=== PATIENT | male | born 1995 | race Caucasian/White ===

== ENCOUNTER 2018-02-25 12:41 | Emergency (ER) | payer OTHER, SELFPAY ==
[2018-02-25 12:46] VITALS: BP 154/90; PULSE 82; RESP 16; TEMP 36.6; O2SAT 98
--- NOTE | 2018-02-25 13:07 | DI.RAD_ITS ---
SYMPTOMS/DIAGNOSIS: TRAUMA, PAIN WORSE OVER AC, SLIPPED OFF LADDER AND HEARD A POP WHILE GRABBING AT THE RUNGS DURING FALL RIGHT SHOULDER: Five views were obtained. No bony or soft tissue abnormality seen.
--- NOTE | 2018-02-25 13:09 | W.ED.GENAD ---
Discharge Plan Disposition Patient Disposition: HOME Condition: Fair Discharge Details Chief Complaint: Orthopedic Clinical Impression: Acute pain of right shoulder Primary Care Provider: Jillian Gama V ED Provider: Violet Cannon Home Meds and New Rx's Prescriptions: New ibuprofen 600 mg tablet 600 mg PO QID PRN (Reason: pain) Qty: 20 RF: 0 No Action No Known Home Meds RF: 0 Discharge Instructions Additional Instructions: Encourage rest, ice, elevation. Tylenol and/or ibuprofen as needed for discomfort. He may use 600 mg of ibuprofen every 6 hours as needed for discomfort. He may augment this with thousand milligrams of Tylenol 4 times daily as needed. Please contact orthopedics to schedule follow-up. If you develop new or worsening symptoms he care urgently once again. Please continue with sling until evaluated by orthopedics. Referrals: Garry Barrios MD [ [facility] STAFF PHYSICIAN] - ([phone]) Discharge Data Discharge Date/Time-TO BE ENTERED AT DEPARTURE: 02/25/18 14:08 Medical Decision Making Patient is a 22-year-old [id number] male presenting today with chief complaint of right shoulder pain. He reports that approximately 4 hours prior to arrival he was working on a 23 foot ladder, sustaining a house at work, slipped off the wet ladder and then fell down. Did not actually fall off a ladder, rather, the patient slid down the right ladder and was trying to catch himself on the rungs with his right hand. States that while doing so he felt a pop in the right shoulder. Since that time has had pain in the anterior lateral aspect of the right shoulder. Denies any history of injury or surgery to the shoulder. Denies any altered sensation. Denies other injury that incident. Did not strike his head. No loss conscious. No nausea or vomiting, visual changes. Patient is also endorsing some pain along the superior aspect of the shoulder rating up towards the neck denies any midline neck tenderness. On exam, patient has full range of motion of the neck. No midline tenderness. With full range to the right with rotation, patient is endorsing some pain but points to the area of the trapezius rating down towards her right shoulder is area of maximal discomfort. 5 of 5 economic manager strength compared to contralateral side. Full range of motion of the elbow, wrist, hand. No Tim deformity. Pain seems to be maximal over the right AC joint. Plan to obtain radiographic images and we will augment his ibuprofen with Tylenol. Discussed splinted the patient was in agreement XR reviewed by myself as well as radiologist with no acute bony abnormality noted. Discussed findings with the patient. He does have palpable clicking with movement of the shoulder. Given this physical exam finding as well as the mechanism of injury, I am concerned for possible SLAP lesion. We also discussed that this may be another ligamentous injury versus muscle strain. He will be placed in a sling. Advised that he keep this on until follow-up with orthopedics. Encouraged rest, ice, elevation. Tylenol and/or ibuprofen as needed for discomfort. We discussed new/worsening symptoms once he care urgently once again. All his questions and concerns were addressed and he is in agreement with this plan. Patient will contact orthopedics today to schedule follow-up appointment HPI General Mode of arrival: ambulatory. Date/Time Provider Initiated Documentation: 02/25/18 12:59. Limitations to Documentation: no limitations. Information obtained by: patient. History of Present Illness 22 year old M presents to the emergency department with the chief complaint of Right shoulder pain, described as moderate, with intensity rated at 7. Quality is described as stabbing and aching, and is localized to the right and upper extremity. Patient reports no radiation. Patient started experiencing this hour(s) (4) and it has been constant. Immobilization improves symptom(s), Movement worsens symptoms . Patient notes no other symptoms.; denies chest pain, cough, fever/chills, headaches, nausea/vomiting, rash and shortness of breath. Patient did receive the following treatments prior to arrival, NSAID Related Data Home Medications Medication Instructions Recorded Confirmed Unknown [No Known Home Meds] 02/25/18 02/25/18 ibuprofen 600 mg PO QID PRN #20 tab 02/25/18 Previous Rx's Medication Instructions Recorded ibuprofen 600 mg PO QID PRN #20 tab 02/25/18 Allergies Allergy/AdvReac Type Severity Reaction Status Date / Time No Known Allergies Allergy Unverified 02/25/18 12:49 General Stated Complaint: Orthopedic PHAN: 4 Review of Systems Constitutional Denies chills, Denies fatigue, Denies fever(s), Denies headache(s) and Denies malaise Eyes Denies change in vision ENT Denies headache(s) Cardiovascular Denies chest pain, Denies dyspnea and Denies dyspnea on exertion Respiratory Denies cough, Denies dyspnea and Denies dyspnea on exertion Gastrointestinal Denies nausea and Denies vomiting Genitourinary Denies urinary incontinence Musculoskeletal Reports as per HPI, Denies numbness and Denies tingling Integumentary/Breasts Denies erythema, Denies rash and Denies wounds Neurologic Reports as per HPI, Denies headache(s), Denies numbness, Denies radicular pain, Denies tingling and Denies paresthesias Endocrine Denies fatigue [facility] Social History Smoking/Tobacco Use Status: Current every day Exam Const General: cooperative, healthy appearing, comfortable, no acute distress, well developed and well groomed Nutritional Appearance: average body habitus and well nourished Orientation: alert and awake Eyes General: appearance normal, both eyes and all related structures Neck Neck: normal visual inspection, full ROM, no lymphadenopathy, no meningeal signs, trachea midline and supple Chest Chest: normal inspection of the chest, normal palpation of entire chest wall, abnormal inspection of the chest, no crepitus and no localized rib tenderness Resp Effort & Inspection: normal respiratory effort, able to speak in complete sentences and no respiratory distress Auscultation: clear to auscultation bilaterally, no rales, no rhonchi and no wheezes Cardio Rate: regular rate Rhythm: regular rhythm Heart Sounds: S1 normal and S2 normal Back/Spine/Pelvis Back: no CVA tenderness Cervical Spine: normal cervical lordosis, cervical ROM normal and other (patient has full ROM, pain with palpation over the lateral aspect of the trapezius with pain radiating toward the shoulder. No midline tenderness or paraspinal tenderness) Thoracic/Lumbar Spine: thoracic and lumbar spine normal to inspection and thoraco-lumbar ROM normal Skin General skin exam: no rashes or lesions noted Lesions: no lesions Rashes: no rashes Trauma: no lacerations or abrasions Wounds: no wounds Neuro General: alert, awake and oriented x3 Cranial Nerves: CN's II-XI intact bilaterally Cognition: normal cognition Speech: speech normal Gait: normal gait Motor: muscle tone normal throughout and strength 5/5 throughout (5/5 economic manager strength) Extrem General: abnormal to inspection (Patient has pain over the AC joint of the right shoulder. Limited ROM secondary to pain. No deformity noted. No tim deformity), abnormal ROM, normal capillary refill and no joint enlargement Psych Appearance: grossly normal and well kempt Mental Status: mental status grossly normal Speech and Movement: speech and movement normal Mood: congruent mood Affect: normal affect Course Vital Signs Temperature 36.6 C 02/25/18 12:46 Pulse 82 02/25/18 12:46 Respiratory Rate 16 02/25/18 12:46 Blood Pressure 154/90 H 02/25/18 12:46 Pulse Oximetry 98 02/25/18 12:46 Temperature 36.6 C 02/25/18 12:46 Temperature Source Skin 02/25/18 12:46 Pulse 82 02/25/18 12:46 Respiratory Rate 16 02/25/18 12:46 Respiratory Effort 02/25/18 12:46 Blood Pressure 154/90 H 02/25/18 12:46 Pulse Oximetry 98 02/25/18 12:46 Oxygen Delivery Method Room Air 02/25/18 12:46 Oxygen Flow Rate 0 02/25/18 12:46
--- NOTE | 2018-02-25 13:12 | ED.GENADUL_ITS ---
Discharge Plan Disposition Patient Disposition: HOME Condition: Fair Discharge Details Chief Complaint: Orthopedic Clinical Impression: Acute pain of right shoulder Primary Care Provider: Jillian Gama V ED Provider: Violet Cannon Home Meds and New Rx's Prescriptions: New ibuprofen 600 mg tablet 600 mg PO QID PRN (Reason: pain) Qty: 20 RF: 0 No Action No Known Home Meds RF: 0 Discharge Instructions Additional Instructions: Encourage rest, ice, elevation. Tylenol and/or ibuprofen as needed for discomfort. He may use 600 mg of ibuprofen every 6 hours as needed for discomfort. He may augment this with thousand milligrams of Tylenol 4 times daily as needed. Please contact orthopedics to schedule follow-up. If you develop new or worsening symptoms he care urgently once again. Please continue with sling until evaluated by orthopedics. Referrals: Garry Barrios MD [ [facility] STAFF PHYSICIAN] - ([phone]) Discharge Data Discharge Date/Time-TO BE ENTERED AT DEPARTURE: 02/25/18 14:08 Medical Decision Making Patient is a 22-year-old [id number] male presenting today with chief complaint of right shoulder pain. He reports that approximately 4 hours prior to arrival he was working on a 23 foot ladder, sustaining a house at work, slipped off the wet ladder and then fell down. Did not actually fall off a ladder, rather, the patient slid down the right ladder and was trying to catch himself on the rungs with his right hand. States that while doing so he felt a pop in the right shoulder. Since that time has had pain in the anterior lateral aspect of the right shoulder. Denies any history of injury or surgery to the shoulder. Denies any altered sensation. Denies other injury that incident. Did not strike his head. No loss conscious. No nausea or vomiting, visual changes. Patient is also endorsing some pain along the superior aspect of the shoulder rating up towards the neck denies any midline neck tenderness. On exam, patient has full range of motion of the neck. No midline tenderness. With full range to the right with rotation, patient is endorsing some pain but points to the area of the trapezius rating down towards her right shoulder is area of maximal discomfort. 5 of 5 field ring assembler strength compared to contralateral side. Full range of motion of the elbow, wrist, hand. No Tim deformity. Pain seems to be maximal over the right AC joint. Plan to obtain radiographic images and we will augment his ibuprofen with Tylenol. Discussed splinted the patient was in agreement XR reviewed by myself as well as radiologist with no acute bony abnormality noted. Discussed findings with the patient. He does have palpable clicking with movement of the shoulder. Given this physical exam finding as well as the mechanism of injury, I am concerned for possible SLAP lesion. We also discussed that this may be another ligamentous injury versus muscle strain. He will be placed in a sling. Advised that he keep this on until follow-up with orthopedics. Encouraged rest, ice, elevation. Tylenol and/or ibuprofen as needed for discomfort. We discussed new/worsening symptoms once he care urgently once again. All his questions and concerns were addressed and he is in agreement with this plan. Patient will contact orthopedics today to schedule follow-up appointment HPI General Mode of arrival: ambulatory . Date/Time Provider Initiated Documentation: 02/25/18 12:59 . Limitations to Documentation: no limitations . Information obtained by: patient . History of Present Illness 22 year old M presents to the emergency department with the chief complaint of Right shoulder pain, described as moderate, with intensity rated at 7. Quality is described as stabbing and aching, and is localized to the right and upper extremity. Patient reports no radiation. Patient started experiencing this hour(s) (4) and it has been constant. Immobilization improves symptom(s), Movement worsens symptoms . Patient notes no other symptoms.; denies chest pain, cough, fever/chills, headaches, nausea/vomiting, rash and shortness of breath. Patient did receive the following treatments prior to arrival, NSAID Related Data Home Medications Medication Instructions Recorded Confirmed Unknown [No Known Home Meds] 02/25/18 02/25/18 ibuprofen 600 mg PO QID PRN #20 tab 02/25/18 Previous Rx's Medication Instructions Recorded ibuprofen 600 mg PO QID PRN #20 tab 02/25/18 Allergies Allergy/AdvReac Type Severity Reaction Status Date / Time No Known Allergies Allergy Unverified 02/25/18 12:49 General Stated Complaint: Orthopedic PHAN: 4 Review of Systems Constitutional Denies chills, Denies fatigue, Denies fever(s), Denies headache(s) and Denies malaise Eyes Denies change in vision ENT Denies headache(s) Cardiovascular Denies chest pain, Denies dyspnea and Denies dyspnea on exertion Respiratory Denies cough, Denies dyspnea and Denies dyspnea on exertion Gastrointestinal Denies nausea and Denies vomiting Genitourinary Denies urinary incontinence Musculoskeletal Reports as per HPI, Denies numbness and Denies tingling Integumentary/Breasts Denies erythema, Denies rash and Denies wounds Neurologic Reports as per HPI, Denies headache(s), Denies numbness, Denies radicular pain, Denies tingling and Denies paresthesias Endocrine Denies fatigue [facility] Social History Smoking/Tobacco Use Status: Current every day Exam Const General: cooperative, healthy appearing, comfortable, no acute distress, well developed and well groomed Nutritional Appearance: average body habitus and well nourished Orientation: alert and awake Eyes General: appearance normal, both eyes and all related structures Neck Neck: normal visual inspection, full ROM, no lymphadenopathy, no meningeal signs , trachea midline and supple Chest Chest: normal inspection of the chest, normal palpation of entire chest wall, abnormal inspection of the chest, no crepitus and no localized rib tenderness Resp Effort & Inspection: normal respiratory effort, able to speak in complete sentences and no respiratory distress Auscultation: clear to auscultation bilaterally, no rales, no rhonchi and no wheezes Cardio Rate: regular rate Rhythm: regular rhythm Heart Sounds: S1 normal and S2 normal Back/Spine/Pelvis Back: no CVA tenderness Cervical Spine: normal cervical lordosis, cervical ROM normal and other ( patient has full ROM, pain with palpation over the lateral aspect of the trapezius with pain radiating toward the shoulder. No midline tenderness or paraspinal tenderness) Thoracic/Lumbar Spine: thoracic and lumbar spine normal to inspection and thoraco-lumbar ROM normal Skin General skin exam: no rashes or lesions noted Lesions: no lesions Rashes: no rashes Trauma: no lacerations or abrasions Wounds: no wounds Neuro General: alert, awake and oriented x3 Cranial Nerves: CN's II-XI intact bilaterally Cognition: normal cognition Speech: speech normal Gait: normal gait Motor: muscle tone normal throughout and strength 5/5 throughout (5/5 field ring assembler strength) Extrem General: abnormal to inspection (Patient has pain over the AC joint of the right shoulder. Limited ROM secondary to pain. No deformity noted. No tim deformity), abnormal ROM, normal capillary refill and no joint enlargement Psych Appearance: grossly normal and well kempt Mental Status: mental status grossly normal Speech and Movement: speech and movement normal Mood: congruent mood Affect: normal affect Course Vital Signs Temperature 36.6 C 02/25/18 12:46 Pulse 82 02/25/18 12:46 Respiratory Rate 16 02/25/18 12:46 Blood Pressure 154/90 H 02/25/18 12:46 Pulse Oximetry 98 02/25/18 12:46 Temperature 36.6 C 02/25/18 12:46 Temperature Source Skin 02/25/18 12:46 Pulse 82 02/25/18 12:46 Respiratory Rate 16 02/25/18 12:46 Respiratory Effort 02/25/18 12:46 Blood Pressure 154/90 H 02/25/18 12:46 Pulse Oximetry 98 02/25/18 12:46 Oxygen Delivery Method Room Air 02/25/18 12:46 Oxygen Flow Rate 0 02/25/18 12:46
[2018-02-25] MEDS: Acetaminophen 500 MG TAB 1000 MG PO (13:14)
== END 2018-02-25 14:08 | disposition home or self-care (01) ==
PROVIDERS: Emergency Provider Physician Assistant; PCP Pediatrics
DX: M25.511 Pain in right shoulder (principal); X50.1XXA Overexertion from prolonged static or awkward postures, initial encounter; Y99.0 Civilian activity done for income or pay
CPT/HCPCS: 99284; 73030; L3650

== ENCOUNTER 2018-10-25 19:19 | Emergency (ER) | payer OTHER, SELFPAY ==
[2018-10-25] VITALS (32 sets, daily range): BP systolic 139–174; BP diastolic 84–100; PULSE 82–130; RESP 12–30; TEMP 36.8; O2SAT 96–99
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
[2018-10-25] MEDS: Normal Saline 1,000 ML 1000 ML IV (21:09)
[2018-10-25 21:21] LABS: Abs Immature Grans 0.05 k/cumm (0.0-0.09); Absolute Basophil Count 0.04 k/cumm (0.0-0.2); Absolute Eosinophil Count 0.02 k/cumm (0.0-0.7); Absolute Lymphocyte Count 1.08 k/cumm (1.2-3.4); Absolute Monocyte Count 0.97 k/cumm (0.11-0.7); Basophils % 0.4; Eosinophils % 0.2; HGB 15.9 g/dL (13.5-17.5); Immature Grans % 0.5; Lymphocytes % 9.8; Mean Corp. HGB Concentration 35.3 g/dL (32.0-36.0); Mean Corpuscular Hemoglobin 33.7 pg (27.0-33.0); Mean Corpuscular Volume 95.3 fL (80-95); Mean Platelet Volume 9.8 fL (8.0-11.0); Monocytes % 8.8; Neutrophils % 80.3; Platelet Count 216 x1000/uL (130-400); RBC 4.72 m/cumm (4.50-6.00); RBC Distribution Width 12.2 % (11.8-14.1); White Blood Cell Count 11.04 k/cumm (4.4-10.8)
[2018-10-25 21:22] LABS: Absolute Neutrophil Count 8.87 k/cumm (1.2-6.7)
[2018-10-25 21:38] LABS: ALT 22 U/L (12-78); AST 12 U/L (15-37); Albumin 4.5 g/dL (3.4-5.0); Alkaline Phosphatase 88 U/L (46-116); Anion Gap 13.2 mmol/L (3-11); BUN 12 mg/dL (7-18); Bilirubin, Total 0.3 mg/dL (0.2-1.0); CO2 23.8 mmol/L (21.0-32.0); Calcium 9.4 mg/dL (8.5-10.1); Chloride 103 mmol/L (98-107); Glucose 106 mg/dL (70-100); Magnesium 1.9 mg/dL (1.8-2.4); Potassium 4.1 mmol/L (3.5-5.1); Sodium 140 mmol/L (136-145); Total Protein 7.9 g/dL (6.4-8.2); Troponin I < 0.02 ng/mL (0.00-0.06)
[2018-10-25] MEDS: Omnipaque 350 MG/ML 100 ML BTL IJ (21:44)
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
--- NOTE | 2018-10-29 09:04 | PDOC.ERCMPRO ---
Care Management Progress Note 10/29-MARVIN Lazo requested assistance with establishing care. No ED f/u needed. 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 Referral faxed to [facility] this am.
--- NOTE | 2018-10-29 09:05 | CMPROGNOTE_ITS ---
Care Management Progress Note 10/29-MARVIN Lazo requested assistance with establishing care. No ED f/u needed. 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 Referral faxed to [facility] this am.
== END 2018-10-25 22:42 | disposition home or self-care (01) ==
PROVIDERS: Emergency Provider Physician Assistant; PCP Pediatrics
DX: T40.1X1A Poisoning by heroin, accidental (unintentional), initial encounter (principal); R55 Syncope and collapse; V43.52XA Car driver injured in collision with other type car in traffic accident, initial encounter
CPT/HCPCS: 36415; 74177; 80053; 96360; 99285; 70450; 71260; 72125; 83735; 84484; 85025; 99284; J3490

== ENCOUNTER 2018-12-01 17:55 | Emergency (ER) | payer OTHER, SELFPAY ==
[2018-12-01 18:04] VITALS: BP 151/90; PULSE 101; RESP 16; TEMP 38; O2SAT 94
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
[2018-12-01] MEDS: Ibuprofen 600 MG TAB PO (19:02)
[2018-12-01] MEDS: Acetaminophen 500 MG TAB 1000 MG PO (19:03)
--- NOTE | 2018-12-01 19:30 | NUR.NOTE ---
Nursing Note: cleaned pt up with warm water and soap. Finding more abrasions superficial on L forearm. R elbow abrasion is deeper. abrasions R lower quad both shoulders. Pt tolerated cleaning well. Father is now at bedside.
[2018-12-01 19:43] VITALS: BP 157/90; PULSE 96; RESP 16; O2SAT 98
== END 2018-12-01 19:47 | disposition home or self-care (01) ==
PROVIDERS: Emergency Provider Physician Assistant; PCP Family Medicine
DX: S42.032A Displaced fracture of lateral end of left clavicle, initial encounter for closed fracture (principal); V17.0XXA Pedal cycle driver injured in collision with fixed or stationary object in nontraffic accident, initial encounter
CPT/HCPCS: 90471; 99283; 73030; L3650

== ENCOUNTER 2018-12-09 09:53 | Outpatient (CLI) | payer OTHER, SELFPAY ==
--- NOTE | 2018-12-09 13:56 | DI.RAD_ITS ---
SYMPTOMS/DIAGNOSIS: F/U LT DISTAL CLAVICLE FRACTURE LEFT CLAVICLE: Single view. Comparison 10/01/18. There has been no change in alignment of the comminuted fracture involving the distal left clavicle.
== END 2018-12-09 10:13 ==
PROVIDERS: PCP Family Medicine; Visit Provider Student in an Organized Health Care Education/Training Program
DX: S42.032D Displaced fracture of lateral end of left clavicle, subsequent encounter for fracture with routine healing (principal)
CPT/HCPCS: 73000

== ENCOUNTER 2018-12-10 17:03 | Observation (INO) | payer OTHER, SELFPAY ==
[2018-12-10] VITALS (11 sets, daily range): BP systolic 103–177; BP diastolic 53–106; PULSE 67–73; RESP 2–25; TEMP 35.9–36.5; O2SAT 92–99
[2018-12-10] MEDS: Lactated Ringers 1,000 ML 80 ML IV ×2 (13:27→18:00)
[2018-12-10] MEDS: Albuterol/Ipratropium 3 ML UPD VIAL UPD (13:54)
[2018-12-10] MEDS: ceFAZolin 2 GM/50 ML BAG IVPB (14:15)
[2018-12-10] MEDS: Bupivacaine 0.25% Pres-Free 30 ML VIAL (15:48)
--- NOTE | 2018-12-10 15:50 | DI.RAD_ITS ---
SYMPTOM/DIAGNOSIS: LT CLAVICLE FX C-ARM LEFT CLAVICLE: The patient is status post plate and screw fixation of a clavicular fracture, the components of which appear in good alignment.
--- NOTE | 2018-12-10 16:39 | W.PM.DSUDISC ---
Discharge Plan Disposition Patient Disposition: HOME Condition: Stable Discharge Details Reason For Visit: Left Distal Clavicle Fracture Attending Provider: Ian Joshi Primary Care Provider: Mukesh Ye Home Meds and New Rx's Prescriptions: New acetaminophen 500 mg tablet 1,000 mg PO Q8H PRN (Reason: pain) Qty: 90 RF: 3 gabapentin 300 mg capsule 300 mg PO QHS Qty: 7 RF: 0 ibuprofen 600 mg tablet 600 mg PO TID PRNQty: 90 RF: 3 diazepam 5 mg tablet 5 mg PO Q8H PRN (Reason: muscle spasm) Qty: 12 RF: 0 Continued Vivitrol 380 mg Suspension,Extended Rel Recon 380 mg IM QMONTH RF: 0 Discontinued ibuprofen 800 mg Tablet 800 mg PO BID PRNRF: 0 acetaminophen 500 mg Capsule 1,000 mg PO PRN PRNRF: 0 Discharge Instructions Additional Instructions: Activity: You should keep your sling in place at all times except for hygiene. You may position your arm and shoulder as you desire but no active motion of the left arm or shoulder. Dressing: The original dressing may stay in place until your follow-up appointment. It may get wet in 3 days but avoid soaking the wound. Medications: - You should take Acetaminophen and Ibuprofen for baseline pain control. - You have Diazepam for brekthrough pain and spasm control. - You should use ice around the clock. Referrals: Ian Joshi MD [ [facility] STAFF PHYSICIAN] - Equipment/Supplies: Sling Activity:: Stay in Sling Remove Dressings/Wound Care:: 72 hours Shower/Bathe:: 72 hours Activity:: Stay in sling Equipment/Supplies:: Sling Diet:: As Tolerated Discharge Orders Discharge Orders: Discharge Order (Routine); Ordered 12/10/18 Ordered By: Ian Joshi DS: Diagnosis Discharge Diagnosis (1) Closed fracture of left clavicle: Status: Acute
[2018-12-10] MEDS: Bupivacaine LIPOSOME/PF 133 MG/10 ML VIAL IJ (17:10)
[2018-12-10] MEDS: Bupivacaine 0.5% Pres-Free 30 ML VIAL (17:10)
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
== END 2018-12-10 18:45 | disposition home or self-care (01) ==
LOC: MS 17:39
PROVIDERS: Admitting Provider Student in an Organized Health Care Education/Training Program; PCP Family Medicine; Visit Provider Student in an Organized Health Care Education/Training Program
PROC: 0PSB04Z Reposition Left Clavicle with Internal Fixation Device, Open Approach (ICD-10-PCS; CPT 23515; principal; 2018-12-10 14:30)
DX: S42.032A Displaced fracture of lateral end of left clavicle, initial encounter for closed fracture (principal); V18.0XXA Pedal cycle driver injured in noncollision transport accident in nontraffic accident, initial encounter; Y93.55 Activity, bike riding; F17.210 Nicotine dependence, cigarettes, uncomplicated; G89.18 Other acute postprocedural pain
CPT/HCPCS: 23515; C1713; 76942; 73000; 94640; J0131; J0690; J1100; J1885; J2250; J2405; J7620; L3650

== ENCOUNTER 2018-12-23 15:04 | Outpatient (CLI) | payer OTHER, SELFPAY ==
--- NOTE | 2018-12-23 14:35 | DI.RAD_ITS ---
SYMPTOM/DIAGNOSIS: LEFT CLAVICLE ORIF LEFT CLAVICLE: Single view: Comparison 12/10/18 There is again seen a side plate and screws transfixing the distal left clavicular fracture. No change in alignment of the orthopaedic hardware or fracture components is noted.
== END 2018-12-23 15:24 ==
PROVIDERS: PCP Family Medicine; Visit Provider Student in an Organized Health Care Education/Training Program
DX: S42.032D Displaced fracture of lateral end of left clavicle, subsequent encounter for fracture with routine healing (principal)
CPT/HCPCS: 73000

== ENCOUNTER 2019-01-01 10:47 | Outpatient (CLI) | payer OTHER, SELFPAY ==
--- NOTE | 2019-01-01 10:31 | DI.RAD_ITS ---
SYMPTOM/DIAGNOSIS: F/U FX LEFT CLAVICLE: Comparison is made with 12/23/18. A fixation plate is again noted across the distal clavicle fracture. The alignment appears unchanged.
== END 2019-01-01 11:07 ==
PROVIDERS: PCP Family Medicine; Visit Provider Student in an Organized Health Care Education/Training Program
DX: S42.032D Displaced fracture of lateral end of left clavicle, subsequent encounter for fracture with routine healing (principal)
CPT/HCPCS: 73000

== ENCOUNTER 2019-01-22 09:23 | Outpatient (CLI) | payer OTHER, SELFPAY ==
--- NOTE | 2019-01-22 08:57 | DI.RAD_ITS ---
SYMPTOM/DIAGNOSIS: F/U FX LEFT CLAVICLE: Two views. Comparison is made with 01/01/19. There are again seen sideplates and screws transfixing the fracture of the distal left clavicle. There is a question of slight retraction of two of the lateral screws. No fracturing of the orthopedic hardware is noted. The alignment of the clavicular fracture is stable. Callous formation is seen about the fracture site suggesting some interval healing. No new fractures or dislocations are appreciated.
== END 2019-01-22 09:43 ==
PROVIDERS: PCP Family Medicine; Visit Provider Student in an Organized Health Care Education/Training Program
DX: S42.032D Displaced fracture of lateral end of left clavicle, subsequent encounter for fracture with routine healing (principal)
CPT/HCPCS: 73000

== ENCOUNTER 2019-02-05 09:53 | Day surgery (SDC) | payer OTHER, SELFPAY ==
[2019-02-05] VITALS (11 sets, daily range): BP systolic 101–153; BP diastolic 47–104; PULSE 66–81; RESP 11–18; TEMP 36.5–36.8; O2SAT 96–99
[2019-02-05] MEDS: Lactated Ringers 1,000 ML 80 ML IV (10:41)
--- NOTE | 2019-02-05 11:38 | DI.RAD_ITS ---
SYMPTOMS/DIAGNOSIS: SURGICAL WOUND DEHISCENCE, LEFT CLAVICLE, HARDWARE FAILURE LEFT CLAVICLE LIMITED: Fluoroscopy Time: 4.1 sec C-arm fluoroscopy was provided in the OR for Dr. Joshi. Hard copy images show removal of previously noted hardware in the distal clavicle.
[2019-02-05] MEDS: ceFAZolin 2 GM/50 ML BAG IVPB (11:55)
[2019-02-05] MEDS: Bupivacaine 0.5% Pres-Free 30 ML VIAL (12:05)
[2019-02-05] MEDS: Bupivacaine LIPOSOME/PF 133 MG/10 ML VIAL IJ ×2 (12:05→12:31)
[2019-02-05] MEDS: Bupivacaine 0.25% Pres-Free 30 ML VIAL (12:31)
[2019-02-05] MEDS: LORazepam 2 MG/ML VIAL 0.5 MG IVP ×2 (13:59→14:09)
--- NOTE | 2019-02-05 15:01 | PDOC.DSDIS_ITS ---
Discharge Plan Disposition Patient Disposition: HOME Condition: Good Discharge Details Reason For Visit: HARDWARE FAILURE (L) CLAVICLE Attending Provider: Ian Joshi Primary Care Provider: Mukesh Ye [place] Meds and New Rx's Prescriptions: New acetaminophen 500 mg tablet 1,000 mg PO Q8H PRN (Reason: pain) Qty: 60 RF: 0 ibuprofen 600 mg tablet 600 mg PO TID PRN (Reason: pain) Qty: 60 RF: 0 diazepam 5 mg tablet 5 mg PO TID PRN (Reason: muscle spasm) Qty: 12 RF: 0 Continued Vivitrol 380 mg Suspension,Extended Rel Recon 380 mg IM QMONTH RF: 0 gabapentin 300 mg capsule 300 mg PO QHS Qty: 7 RF: 0 Discontinued acetaminophen 500 mg tablet 1,000 mg PO Q8H PRN (Reason: pain) Qty: 90 RF: 3 ibuprofen 600 mg tablet 600 mg PO TID PRNQty: 90 RF: 3 Discharge Instructions Additional Instructions: Activity: You may position your arm and shoulder as you like y your side but avoid overhead motions. Increase light activity with the arm by your side as tolerated by discomfort. Dressing: Keep dressing in place until your follow-up appointment. You may get it wet in 3 days but avoid soaking the wound. Medications: - You should take Acetaminophen and Ibuprofen for baseline pain control. - You have Diazepam for breakthrough pain and spasm control. - You should use ice around the clock. Referrals: Ian Joshi MD [ [facility] STAFF PHYSICIAN] - Activity:: Activity as Tolerated Remove Dressings/Wound Care:: 72 hours Shower/Bathe:: 72 hours Diet:: As Tolerated Discharge Orders Discharge Orders: Discharge Order (Routine); Ordered 02/05/19 Ordered By: Ian Joshi DS: Diagnosis Discharge Diagnosis (1) Closed fracture of left clavicle: Status: Acute (2) Failed orthopedic implant: Status: Acute
--- NOTE | 2019-02-06 21:53 | ROE_ITS ---
Date of service: 02/05/19 Time of Service: 14:54 Operative Note Operative Note DATE OF PROCEDURE: 02/05/19 PRE-OP DIAGNOSIS: Left Clavicle Hardware Failure POST-OP DIAGNOSIS: same PROCEDURE: Hardware Removal of Left Clavicle SURGEON: Ian Joshi INSPECTOR GOLF BALL: Jeannette Wilder ANESTHESIA: ALBERT ESTIMATED BLOOD LOSS: 10 PATHOLOGY: none sent COMPLICATIONS: None Patient was transported to: PACU Patient's condition: stable Indications: Marty is a 23 year old male who sufferred a comminuted, distal clavicle fracture of the left shoulder. This was treated surgically but soon after he developed failure of the lateral plate and there was plate displacement with prominence and pain. Given the failure of the plate and some early signs of union, I recommended the plate to be removed. I discussed the risk of the procedure to include bleeding, infection, pain, stiffness, weakness, loss of union, refracture. Despite these risks, the patient elects to proceed. Findings: All 3 lateral locking screws were loose both in the plate and within the bone. The plate was removed and the fiber tape connected to the coracoid button was also already loose. The plate was removed and the fracture was investigated. There may have been some subtle motion at the fracture but no gross motion of the overall alignment and therefore no further hardware was placed. Procedure Description: Marty was greeted in the preoperative holding area. Consent was reviewed with the patient and signed. History physical was updated. Correct site was marked. Patient was then transferred back to the operative suite. The correct site was identified and a timeout was performed for safety and per hospital protocol. A general anesthetic was administered. The shoulder was prepped with ChloraPrep and draped in a standard fashion. Prophylactic antibiotics in the form of cefazolin were given. The previous incision was excised of all scar. This was done sharply. All bleeding was cauterized. The deeper layer was then incised on top of the plate. The lateral aspect the plate was easily identifiable and this was used as a guide to incise the soft tissue from on top of the plate. All 3 lateral locking screws were noted to be loose. These are removed without difficulty. The sutures from the button were cut and the button was withdrawn from the wound. However, it was noted that the fiber tape was actually torn just below the clavicle and not from where I cut. The remaining screws were removed without any difficulty. The plate was with moved from the clavicle. There was notable callus seen at the fracture site. I do not debride this callus down. Both live and static fluoroscopy shots were taken which demonstrated overall preserved alignment without gross displacement. It is hard to appreciate there is may be some subtle motion to the fracture. However, there is no gross displacement and therefore all hardware was removed and not replaced with anything to back this up. The wound was thoroughly irrigated and all inflammatory tissue was dis sected with a rondure. The clavipectoral fascia on top of the clavicle was reapproximated with 0 Vicryl. Deep layer including platysma was closed with 3-0 Vicryl. The skin was closed a running 4-0 Monocryl. This was reinforced with skin glue followed by Mepilex dressing. Hector was placed into a sling. Marty tolerated procedure well and was transferred back to the PACU in stable condition.
== END 2019-02-05 15:34 | disposition home or self-care (01) ==
PROVIDERS: PCP Family Medicine; Visit Provider Student in an Organized Health Care Education/Training Program
PROC: (CPT 20680; principal; 2019-02-05 12:30)
DX: T84.498A Other mechanical complication of other internal orthopedic devices, implants and grafts, initial encounter (principal); S42.032D Displaced fracture of lateral end of left clavicle, subsequent encounter for fracture with routine healing; X58.XXXD Exposure to other specified factors, subsequent encounter
CPT/HCPCS: 20680; 76000; 76942; 73000; J0690; J1100; J1885; J2060; J2250; J2405; L3650

== ENCOUNTER 2019-04-23 10:44 | Outpatient (REF) | payer OTHER, SELFPAY ==
[2019-04-23 11:46] LABS: ALT 26 U/L (16-63); AST 12 U/L (15-37); Albumin 4.1 g/dL (3.4-5.0); Alkaline Phosphatase 90 U/L (46-116); Anion Gap 10.2 mmol/L (3-11); BUN 14 mg/dL (7-18); Bilirubin, Total 0.6 mg/dL (0.2-1.0); CO2 27.8 mmol/L (21.0-32.0); CREATININE 0.85 mg/dL (0.70-1.30); Calcium 9.1 mg/dL (8.5-10.1); Chloride 104 mmol/L (98-107); Glucose 93 mg/dL (74-106); Potassium 4.1 mmol/L (3.5-5.1); Sodium 142 mmol/L (136-145); Total Protein 7.4 g/dL (6.4-8.2)
[2019-04-25 10:27] LABS: Hepatitis B Surface Ag Negative (Negative)
[2019-04-25 11:00] LABS: Hepatitis C Ab w Rflx HCV PCR Negative (Negative)
== END 2019-04-23 11:04 ==
LOC: NCHCN 10:44
PROVIDERS: PCP Family Medicine; Visit Provider Family Medicine
DX: Z00.00 Encounter for general adult medical examination without abnormal findings (principal); F10.10 Alcohol abuse, uncomplicated; Z11.59 Encounter for screening for other viral diseases
CPT/HCPCS: 80053; 86803; 87340

== ENCOUNTER 2020-07-05 18:04 | Outpatient (REF) | payer MEDICAID, SELFPAY ==
[2020-07-05 19:21] LABS: Abs Immature Grans 0.01 10^3/uL (0.0-0.06); Absolute Basophil Count 0.06 10^3/uL (0.0-0.2); Absolute Eosinophil Count 0.06 10^3/uL (0.0-0.7); Absolute Lymphocyte Count 1.58 10^3/uL (1.2-3.4); Absolute Monocyte Count 0.48 10^3/uL (0.1-0.8); Absolute Neutrophil Count 2.92 10^3/uL (1.2-6.7); Basophils % 1.2; Eosinophils % 1.2; HCT 42.1 % (40.0-50.0); HGB 14.3 g/dL (13.5-17.5); Immature Grans % 0.2; Lymphocytes % 30.9; MCH 32.1 pg (27.0-33.0); MCV 94.6 fL (80-95); MPV 10.2 fL (8.0-11.0); Monocytes % 9.4; Neutrophils % 57.1; Nucleated RBC 0 %; Platelet Count 237 10^3/uL (130-400); RBC 4.45 10^6/uL (4.36-5.78); RDW-SD 41.9 fL; WBC 5.11 10^3/uL (4.4-10.8)
[2020-07-05 20:32] LABS: ALT 17 U/L (16-63); AST 9 U/L (15-37); Albumin 4.4 g/dL (3.4-5.0); Alkaline Phosphatase 71 U/L (46-116); Anion Gap 8.7 mmol/L (3-11); BUN 18 mg/dL (7-18); Bilirubin, Total 0.7 mg/dL (0.2-1.0); CO2 29.3 mmol/L (21.0-32.0); Calcium 9.6 mg/dL (8.5-10.1); Chloride 104 mmol/L (98-107); Glucose 91 mg/dL (74-106); Potassium 4.1 mmol/L (3.5-5.1); Sodium 142 mmol/L (136-145); Total Protein 7.2 g/dL (6.4-8.2)
[2020-07-07 10:31] LABS: HIV-1/2 Ag & Ab Screen Negative (Negative)
== END 2020-07-05 18:05 | disposition home or self-care (01) ==
LOC: NCHCN 18:04
PROVIDERS: PCP Family Medicine; Visit Provider Family Medicine
DX: R63.4 Abnormal weight loss (principal); Z11.4 Encounter for screening for human immunodeficiency virus [HIV]
CPT/HCPCS: 80053; 87389; 84443; 85025

== ENCOUNTER 2020-09-01 20:04 | Outpatient (REF) | payer MEDICAID, SELFPAY ==
[2020-09-01 17:59] LABS: ESR < 2 mm//hr (0-15)
[2020-09-01 18:50] LABS: Creatine Kinase 34 U/L (39-308)
== END 2020-09-01 20:05 | disposition home or self-care (01) ==
LOC: NCHCN 20:04
PROVIDERS: PCP Family Medicine; Visit Provider Family Medicine
DX: K30 Functional dyspepsia (principal); M79.18 Myalgia, other site
CPT/HCPCS: 82550; 85652

== ENCOUNTER 2023-06-22 15:09 | Emergency (ER) | payer MEDICAID, SELFPAY ==
[2023-06-22 15:23] VITALS: BP 149/79; PULSE 86; RESP 17; TEMP 36.8; O2SAT 97
--- NOTE | 2023-06-22 15:27 | W.ED.GENAD ---
HPI General Date/Time Provider Initiated Documentation: 06/22/23 15:26. HPI Narrative: 27 year-old male presents to ED today by POV/ambulating with a chief complaint of R foerarm/wrist pain, R-hand dominant, with onset over one year ago- acute on chronic. Quality described as a burning or shooting pain most in his wrist and ulnar areas especially worse with wrist flexion, no radiation to complete numbness, reports he does have periods of spontaneous relief lasting prolonged periods, endorses his fingers feeling cold or asleep sometimes, denies any trauma to the other, denies redness/fever, denies IVDU, todays instigating event was lifting a bag of sand into his truck, reports when his kids bump his wrist while playing he gets severe exacerbations. Severity is described as 12/04. Palliating factors include has been sleeping with a brace at night for about 6 months. 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 Patient not anticoagulated. Related Data Home Medications Medication Instructions Recorded Confirmed acetaminophen 500 mg tablet 1,000 mg (2 x 500 mg) PO Q8H PRN 02/05/19 06/22/23 pain #60 tabs ibuprofen 600 mg tablet 600 mg PO TID PRN pain #60 tabs 02/05/19 06/22/23 diclofenac sodium 1 % topical gel 2 g topical QID tendonitis #100 06/22/23 grams Previous Rx's Medication Instructions Recorded acetaminophen 500 mg tablet 1,000 mg (2 x 500 mg) PO Q8H PRN 02/05/19 pain #60 tabs ibuprofen 600 mg tablet 600 mg PO TID PRN pain #60 tabs 02/05/19 diclofenac sodium 1 % topical gel 2 g topical QID tendonitis #100 06/22/23 grams Allergies Allergy/AdvReac Type Severity Reaction Status Date / Time No Known Allergies Allergy Unverified 01/22/19 08:56 General Stated Complaint: Orthopedic PHAN: 4 Review of Systems All systems reviewed & are unremarkable except as noted in HPI and below Exam Narrative Exam Narrative: GENERAL APPEARANCE: Well-nourished, non-toxic, awake and alert, atraumatic, no acute distress. SKIN: Warm, pink, dry, intact, without rashes/lesions/ulcerations. HEAD: Normocephalic, atraumatic, normal hair distribution for gender/age. EYES: Pupils PERRLA, EOMs intact without nystagmus, normal conjunctiva, no exudates on lids/lashes. ENT: Nares patent, no circumoral cyanosis, no facial swelling NECK: Supple, trachea midline, painless cervical ROM. LUNGS/CHEST: Non-labored respirations, normal A/P diameter, symmetrical expansion, no chest wall deformity HEART (CV/PV): Regular rate, R radial pulse 2+, no peripheral edema, no JVD. ABDOMEN: Soft, non-distended, no guarding. MSK: Normal ROM, no swelling/deformity to bilateral UEs or LEs, moving all extremities without weakness, no cyanosis, spine midline without tenderness, normal curvature. 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 NEURO: Mental Status AAOx4 - alert to person, place, time, events No facial droop, no forehead involvement. Motor: No focal weakness - strength 5/5 in bilateral UEs and LEs, proximal and distal, symmetric. Sensory: sensation intact to light touch globally. Gait normal: patient ambulated without ataxia into ED room. PSYCH: euthymic, cooperative, pleasant, appropriate speech Course Vital Signs Vital signs: Vital Signs Temperature 36.8 C 06/22/23 15:23 Pulse 86 06/22/23 15:23 Respiratory Rate 17 06/22/23 15:23 Blood Pressure 149/79 H 06/22/23 15:23 Pulse Oximetry 97 06/22/23 15:23 Temperature 36.8 C 06/22/23 15:23 Temperature Source Oral 06/22/23 15:23 Pulse 86 06/22/23 15:23 Respiratory Rate 17 06/22/23 15:23 Respiratory Effort Normal, Non-Labored 06/22/23 15:26 Blood Pressure 149/79 H 06/22/23 15:23 Blood Pressure Position Sitting 06/22/23 15:23 Pulse Oximetry 97 06/22/23 15:23 Oxygen Delivery Method Room Air 06/22/23 15:23 Oxygen Flow Rate 0 06/22/23 15:23 Medical Decision Making This dictation utilizes [id number] dictation software and may contain unedited grammatical errors. 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 Patient denies trauma, no redness or warmth to area, occasional radiation to elbow. Patients' medical history: negative, otherwise healthy. 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 Differential / pathologies of concern include carpal tunnel syndrome, cubital tunnel syndrome, tendonitis. Diagnostic studies of: -none, XR would not likely be useful. Interventions of: -Counsled on NSAID use, topical voltaren, recommend he seek a massage therapist for forearm musculature, and increase his brace use from night to 24/7 for 1-2 weeks. ED Course/Assessment/Plan: 27-year-old otherwise healthy male has significant repetitive motion in his occupation and had of his right forearm and wrist pain, Tinel's and Phalen's positive at the wrist, negative at the cubital tunnel, tenderness in the forearm musculature. I suspect he has an element of tendinitis as well as carpal tunnel syndrome longstanding. I counseled him on regular NSAID use by 220 mg naproxen twice daily as well as sent a prescription for topical diclofenac gel and counseled on bracing as well as using the muscle tension with gentle massage, forwarding his chart to orthopedics and recommend he follow-up for definitive care, strict return criteria for any increasing redness, warmth to touch, complete numbness. Findings not consistent with septic arthritis, neurovascular compromise, trauma. Disposition of carpal tunnel syndrome of right wrist, tendinitis. Patient verbalized understanding of the plan and return to ED criteria and engaged in shared decision making. Medical Records Medical records reviewed: Yes I reviewed the patient's medical records. Quality:SDOH Health Related Social Needs: No Data to Display PFSH All Active Problems Tendonitis (Acute) Carpal tunnel syndrome of right wrist (Acute) Closed fracture of left clavicle (Acute) Neer Type IIB, s/p ORIF 12/11/18 Surgical wound dehiscence (Acute) Failed orthopedic implant (Acute) History of fracture of clavicle (Acute) surgical repair Medical History (Updated 06/22/23 @ 15:51 by MARVIN Sanders) Drug abuse Surgical History History of knee surgery Social History Smoking/Tobacco Use Status: Current every day Tobacco Type: cigarettes Years smoked: 5 Smoking risk assessment performed?: Yes Alcohol Intake: never Drug use: Occasionally Substance use type: marijuana Housing: apartment Do you feel safe at home: Yes Do you feel safe in your relationship?: Yes Discharge Plan Disposition Patient Disposition: Home Condition: Stable Discharge Details Clinical Impression: Carpal tunnel syndrome of right wrist, Tendonitis Primary Care Provider: Mukesh Ye ED Provider: Griffin Marcelo Home Meds and New Rx's Prescriptions: New diclofenac sodium 1 % gel 2 g topical QID Qty: 100 0RF Rx Instructions: apply to single elbow, wrist or hand; for hand includes palm/fingers/back of hand Continued acetaminophen 500 mg tablet 1,000 mg PO Q8H PRN (Reason: pain) Qty: 60 0RF ibuprofen 600 mg tablet 600 mg PO TID PRN (Reason: pain) Qty: 60 0RF Discharge Instructions Instructions: Diclofenac (On the skin), Tendinitis (ED), Carpal Tunnel Surgery (DC) Additional Instructions: You were seen in the emergency department for your tendinitis as well as carpal tunnel syndrome of your right wrist. As we discussed please take 1 Aleve every 12 hours going forward, seek a massage therapist to help with your tendinitis, I have sent a prescription for topical clove Clofenax gel to [facility] in [place] to use as topical anti-inflammatory, increase your at home bracing from nighttime to 24/7 for 1 to 2 weeks, please follow-up with orthopedics I have forwarded your chart to their office, you may need a referral from your primary care physician to be seen here. Please return to the ER for any complete numbness of the hand, inability to move the wrist, warmth to touch or red streaking up the arm Referrals: [facility] [Provider Group] Mukesh Ye [Primary Care Provider] - Discharge Data Discharge Date/Time-TO BE ENTERED AT DEPARTURE: 06/22/23 16:06
[2023-06-22 16:06] VITALS: BP 149/79; PULSE 86; RESP 17; TEMP 36.8; O2SAT 97
== END 2023-06-22 16:06 | disposition home or self-care (01) ==
PROVIDERS: Emergency Provider Physician Assistant; PCP Family Medicine
DX: G56.01 Carpal tunnel syndrome, right upper limb (principal); M67.833 Other specified disorders of tendon, right wrist; F17.210 Nicotine dependence, cigarettes, uncomplicated
CPT/HCPCS: 99283

== ENCOUNTER 2024-03-29 03:16 | Emergency (ER) | payer MEDICAID, SELFPAY ==
[2024-03-29 03:18] VITALS: BP 142/82; PULSE 81; RESP 26; TEMP 37; O2SAT 100
--- NOTE | 2024-03-29 03:20 | ED.GENADUL_ITS ---
Discharge Plan Disposition Patient Disposition: Home Condition: Stable Discharge Details Clinical Impression: Left-sided thoracic back pain Primary Care Provider: Mukesh Ye ED Provider: Clemente Morales Home Meds and New Rx's Prescriptions: New Morphine Ir, 4 Tabs/Btl [Msir, 4 Tabs/Btl] 7.5 mg PO Q6H PRN (Reason: Pain, Severe) Qty: 4 0RF ibuprofen 600 mg tablet 600 mg PO TID Qty: 15 0RF cyclobenzaprine 10 mg tablet 10 mg PO TID PRN (Reason: muscle spasm) Qty: 15 0RF lidocaine 5 % adhesive patch,medicated 1 patch topical DAILY Qty: 15 0RF Rx Instructions: leave on most painful area for up to 12 hrs No Action No Known Home Meds Discharge Instructions Instructions: Opioids for Short-Term Treatment of Pain ED, Upper Back Pain ED Additional Instructions: You were seen for left upper back pain. Your laboratory studies, EKG, imaging are all reassuring. Suspect this is related to muscle spasm. Will prescribe ibuprofen, muscle relaxer, lidocaine patch. Short-term oral morphine has been provided for the weekend. Do not drive, use alcohol, operate machinery while taking. Heat and gentle massage may help. Follow-up with primary care on Sunday as scheduled. Return to ED for any new or worsening pain, shortness of breath, syncope, neurologic change. HPI General Mode of arrival: ambulatory . Date/Time Provider Initiated Documentation: 03/29/24 03:20 . Limitations to Documentation: no limitations . Information obtained by: patient, RN notes reviewed and old records reviewed . HPI Narrative: Patient presents to ED with left upper scapular pain that radiates out into the chest. Patient reports some discomfort for about 3 weeks. However, over the last 3 days he has had worsening pain to the point where he now has to keep his left arm up over his head to relieve pain. There is a pleuritic component to this. He does not feel short of breath. Denies any fever or cough. Denies any significant past medical history. Did have a prior clavicle fracture that was repaired surgically and subsequently needed to have the plate removed. This occurred about 5 years ago. He denies any new injuries. Denies any leg pain or leg swelling. He does smoke tobacco. He does not take any medications. He has tried ibuprofen without relief. Pain is to the point where it is unbearable and he presents to ED for evaluation. Related Data Home Medications ?Medication ?Instructions ?Recorded ?Confirmed MORPHine IR, 4 tabs/btl [MSIR, 4 7.5 mg PO Q6H PRN Pain, Severe #4 03/29/24 tabs/btl] tabs Unknown [No Known Home Meds] 03/29/24 03/29/24 cyclobenzaprine 10 mg tablet 10 mg PO TID PRN muscle spasm #15 03/29/24 tabs ibuprofen 600 mg tablet 600 mg PO TID #15 tabs 03/29/24 lidocaine 5 % topical patch 1 patch topical DAILY #15 ea 03/29/24 Previous Rx's ?Medication ?Instructions ?Recorded MORPHine IR, 4 tabs/btl [MSIR, 4 7.5 mg PO Q6H PRN Pain, Severe #4 03/29/24 tabs/btl] tabs cyclobenzaprine 10 mg tablet 10 mg PO TID PRN muscle spasm #15 03/29/24 tabs ibuprofen 600 mg tablet 600 mg PO TID #15 tabs 03/29/24 lidocaine 5 % topical patch 1 patch topical DAILY #15 ea 03/29/24 Allergies Allergy/AdvReac Type Severity Reaction Status Date / Time No Known Allergies Allergy Unverified 03/29/24 03:23 General PHAN: 4 Review of Systems Narrative: Per HPI Exam Narrative Exam Narrative: Const: WDWN male in obvious pain. VS per triage. HEENT: NC/AT. Normal facial exam. Neck: Supple. Trachea midline. No cervical spine tenderness or trapezial muscle tenderness. Lungs: Normal respiratory effort. Lungs are clear and equal. Cor: RRR without murmur. Good radial pulses. Back: No TLS spine tenderness. No significant upper back or scapula tenderness. Neuro: A+O x 3. Normal speech, mentation, gait. Cranial nerves II - XII grossly intact. No gross motor or sensory deficit. Ext: No C/C/E. Has normal range of motion of the left upper extremity with good radial pulse and good strength and sensation distally. Does have pain with range of motion to some degree in the left shoulder area. Right upper extremity normal range of motion. 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 Skin: Without rash. Medical Decision Making Patient presenting to ED with left upper back pain that radiates through to the anterior chest. Seemingly musculoskeletal in nature and feels most comfortable with his arm up over his head. Seems to have normal range of motion of that shoulder. He is neurovascularly intact distally. Pain is not easily reproducible with palpation. Definitely appears uncomfortable. Doubt this is cardiovascular or pulmonary in nature but given the degree of discomfort with minimal reproduction of pain with palpation or range of motion will obtain CTA of the chest. There is no rash, erythema, fevers. Will obtain EKG and 1 troponin given the duration of pain. Will check CBC, chemistry, sed rate and CRP. Laboratory studies essentially normal with normal white count, ESR, CRP, BMP. CT scan of the chest negative for any acute pathology, specifically no pulmonary embolus, no aortic changes. Patient somewhat better after ketorolac, orphenadrine, morphine. Suspect this is trapezial muscle spasm. Potentially could be cervical radiculopathy but does not really fit a dermatome. Will apply lidocaine patch. Recommend gentle massage and heat. Will continue ibuprofen and orphenadrine. Will give short course of immediate release morphine if needed. He has follow-up with primary care on Sunday. Return precautions provided. Medical Records Medical records reviewed: Yes I reviewed the patient's medical records. Medical records narrative: Operative note from 2019 Lab Data Lab results reviewed: Yes I reviewed the patient's lab results. Lab results narrative: See [facility] ECG Data Attestation: I personally reviewed and interpreted this ECG (s) as follows: Interpretation: See MDM/EKG [facility] All Active Problems (Updated 03/29/24 @ 06:20 by Clemente Morales MD) Left-sided thoracic back pain (Acute) Medical History No significant past medical history Surgical History Closed fracture of left clavicle Neer Type IIB, s/p ORIF 12/11/18 Failed orthopedic implant with removal of plate/screws History of knee surgery Social History Smoking/Tobacco Use Status: Current every day Tobacco Type: e-cigarettes Smoking risk assessment performed?: Yes Alcohol Intake: never Drug use: Occasionally Substance use type: marijuana Housing: apartment Do you feel safe at home: Yes Do you feel safe in your relationship?: Yes
--- NOTE | 2024-03-29 03:30 | RT.EKG_ITS ---
APPROVED REPORT Exam: Resting ECG Reason for Exam: chest pain Patient Location: E HR:58 bpm ECG Measurements Heart Rate 58 AXIS AL 154 P 59 QRSd 101 QRS 84 QT 426 T 62 QTc 419 Conclusion Sinus bradycardia...rate< 60 ST elev, probable normal early repol pattern...ST elevation, age<55 Normal [place] I have reviewed and interpreted ECG and agree with software generated interpretation.
--- NOTE | 2024-03-29 03:30 | DI.CT_ITS ---
Exam(s) CT CHEST PE CTA EXAM: CT CHEST PE CTA CLINICAL HISTORY: L back/chest pain. TECHNIQUE: Imaging Protocol: Axial CT angiography was performed with multi-slice acquisition and mu lti-planar reconstructions as well as axial, coronal and sagittal MIP reconstructions. Computer aided detection (CAD) was utilized. CONTRAST MATERIAL: Intravenous: Omnipaque 350 Contrast volume:100 ml COMPARISON: CR XR CLAVICLE LT from 01/22/2019 FINDINGS: Pulmonary Arteries: No evidence of filling defect to suggest pulmonary emboli. Mediastinum and Tanja: No dominant adenopathy or fluid collection. Pulmonary parenchyma: No consolidation or dominant measurable mass. Pleura: No effusion or pneumothorax. Heart: The heart is not dilated. No coronary artery calcifications are seen. Aorta: Thoracic aorta non-dilated. No dissection. Upper abdomen: No acute findings. Bones: Unremarkable for age. Tubes, Catheters, and Lines: None Soft tissues: Unremarkable. IMPRESSION: No evidence of pulmonary embolism or other acute abnormality in the chest. RADIATION DOSE DELIVERED: Total DLP DATA REPOSITORY: All CT scans at this facility are submitted to the National Radiology Data Registry (NRDR) Dose Index Registry (DIR) with the [employer] (ACR). RADIATION OPTIMIZATION: All CT scans at this facility use at least one of these dose optimization te chniques: automated exposure control; mA and/or kV adjustment per patient size (includes targeted exa ms where dose is matched to clinical indication); or iterative reconstruction.
[2024-03-29] MEDS: Orphenadrine 60 MG/2 ML VIAL IVP (03:43)
[2024-03-29] MEDS: Ketorolac 30 MG/ML VIAL IVP (03:43)
[2024-03-29 03:46] LABS: Abs Immature Grans 0.02 10^3/uL (0.0-0.06); Absolute Basophil Count 0.07 10^3/uL (0.0-0.2); Absolute Eosinophil Count 0.14 10^3/uL (0.0-0.7); Absolute Lymphocyte Count 2.78 10^3/uL (1.2-3.4); Absolute Monocyte Count 0.83 10^3/uL (0.1-0.8); Absolute Neutrophil Count 4.27 10^3/uL (1.2-6.7); Basophils % 0.9 %; Eosinophils % 1.7 %; HCT 46.3 % (40.0-50.0); HGB 15.9 g/dL (13.5-17.5); Immature Grans % 0.2 %; Lymphocytes % 34.3 %; MCHC 34.3 % (32.0-36.0); MCV 96 fL (80-95); MPV 9.3 fL (8.0-11.0); Monocytes % 10.2 %; Neutrophils % 52.7 %; Platelet Count 248 10^3/uL (130-400); RBC 4.82 10^6/uL (4.36-5.78); RDW 12.4 % (11.8-14.1); RDW-SD 44.4 fL; WBC 8.11 10^3/uL (4.4-10.8)
[2024-03-29 03:53] LABS: ESR < 1 mm/hr (0-15)
[2024-03-29] MEDS: Normal Saline - Diluent 50 ML VIAL IJ (03:59)
[2024-03-29] MEDS: Omnipaque 350 MG/ML 100 ML BTL IJ (03:59)
[2024-03-29 04:00] LABS: C-Reactive Protein < 0.50 mg/dL (<or=0.5)
[2024-03-29 04:02] LABS: Lab Add On Test DONE
[2024-03-29 04:05] LABS: Anion Gap 6.6 mmol/L (3-11); BUN 14 mg/dL (7-18); CO2 30.4 mmol/L (21.0-32.0); CREATININE 0.8 mg/dL (0.70-1.30); Chloride 106 mmol/L (98-107); Glucose 99 mg/dL (74-106); Magnesium 1.9 mg/dL (1.8-2.4); Sodium 143 mmol/L (136-145)
[2024-03-29 04:06] LABS: Troponin I < 4 ng/L (<or=76)
[2024-03-29] MEDS: MORPHine 4 MG/ML SYR IVP (04:53)
--- NOTE | 2024-03-29 06:09 | DI.VRAD_ITS ---
PROCEDURE INFORMATION: Exam: CTA Chest With Contrast Exam date and time: 03/29/2024 4:09 AM Age: 28 years old Clinical indication: Other: L back/chest pain; Additional info: L back/chest pain. PT sts surgery to L clavicle x 3 years ago, feel likes something near L clavicle TECHNIQUE: Imaging protocol: Computed tomographic angiography of the chest with contrast. Exam focused on the arteries. 3D rendering (Not supervised by radiologist): MIP and/or 3D reconstructed images were created by the technologist. Contrast material: OMNI 350; Contrast volume: 100 ml; Contrast route: INTRAVENOUS (IV); COMPARISON: CT CHEST/ABD/PEL W 10/25/2018 9:02 PM FINDINGS: Pulmonary arteries: No pulmonary embolus is appreciated. Aorta: No thoracic aortic aneurysm seen. Lungs: No focal consolidation seen. Pleural spaces: No pleural effusion. Heart: No pericardial effusion. Lymph nodes: No acute abnormality seen. Stomach: Gastric distension, incompletely imaged. Bones/joints: No acute pertinent abnormality seen. Soft tissues: No acute pertinent abnormality seen. IMPRESSION: No acute findings to explain reported symptoms. Dictated and Authenticated by: Maryan Mcguire MD. Ordering:EVITA Cornejo MD
[2024-03-29 06:24] VITALS: BP 126/94; PULSE 66; RESP 18; O2SAT 100
[2024-03-29] MEDS: Lidocaine 5% Patch 1 PATCH TP (06:24)
[2024-03-29] MEDS: MORPHine IR 15 MG TAB, 4 TABS/BTL PO (06:25)
--- NOTE | 2024-03-29 11:52 | NUR.NOTE ---
Accessed PT chart to check if prescriptions were sent to [facility]. Pharmacist stated she only received 1 of the medications. Ebony, charge nurse, gave the other two as a verbal.
== END 2024-03-29 06:25 | disposition home or self-care (01) ==
PROVIDERS: Emergency Provider Emergency Medicine; PCP Family Medicine
DX: M54.6 Pain in thoracic spine (principal); F17.290 Nicotine dependence, other tobacco product, uncomplicated
CPT/HCPCS: 36415; 71275; 80048; 85652; 93005; 96374; 96375; 99285; J2360; 83735; 84484; 85025; 86140; 93010; 99284; J1885; J2270; J3490

== ENCOUNTER 2024-04-01 13:53 | Outpatient (CLI) | payer MEDICAID, SELFPAY ==
--- NOTE | 2024-04-01 11:16 | DI.RAD_ITS ---
Exam(s) XR CERVICAL SPINE COMP 4-5V EXAM: XR CERVICAL SPINE COMP 4-5V CLINICAL HISTORY: PAIN LEFT SHOULDER M25.512, R/O CERVICAL RADICULOPATHY. TECHNIQUE: 2D digital imaging was performed. Five images were obtained. AP, odontoid, lateral and bi lateral oblique images were obtained. COMPARISON: No exams were available for comparison FINDINGS: The odontoid is intact. The lateral masses are well aligned. There is normal alignment of the cervi santiago spine. The vertebral bodies, disc spaces and posterior elements are well maintained. No acute f racture or subluxation is present. No significant neural foraminal stenosis is present. The cervical thoracic junction is well maintained. The prevertebral soft tissues are unremarkable. Lung apices a re clear. IMPRESSION: Unremarkable radiographs of the cervical spine. DATA REPOSITORY: RADIATION DOSE DELIVERED:
== END 2024-04-01 14:13 ==
PROVIDERS: PCP Family Medicine; Visit Provider Student in an Organized Health Care Education/Training Program
DX: M25.512 Pain in left shoulder (principal)
CPT/HCPCS: 72050

== ENCOUNTER 2024-04-07 15:30 | Outpatient (CLI) | payer MEDICAID, SELFPAY ==
--- NOTE | 2024-04-07 08:45 | DI.RAD_ITS ---
Exam(s) XR SHOULDER LT COMPLETE 2+V XR CLAVICLE LT EXAM: XR SHOULDER LT COMPLETE 2+V CLINICAL HISTORY: left shoulder pain. TECHNIQUE: 2D digital imaging was performed. Three views. COMPARISON: CR XR shoulder LT 1V from 12/09/2018 CR XR CLAVICLE LT from 01/22/[address] CHEST PE CTA from 03/29/2024 CR XR CLAVICLE LT from 04/07/2024 FINDINGS: BONES: No acute fracture is present. Old fracture distal clavicle. Suture anchor noted at acromion. No bony destructive lesion is seen. JOINTS: No dislocation present. No significant degenerative changes. SOFT TISSUE: Normal. IMPRESSION: Old clavicle fracture. DATA REPOSITORY: RADIATION DOSE DELIVERED:
== END 2024-04-07 15:31 | disposition home or self-care (01) ==
LOC: DIORS 15:30
PROVIDERS: PCP Student in an Organized Health Care Education/Training Program; Visit Provider Physician Assistant
DX: S42.032D Displaced fracture of lateral end of left clavicle, subsequent encounter for fracture with routine healing (principal); M19.012 Primary osteoarthritis, left shoulder; X58.XXXD Exposure to other specified factors, subsequent encounter
CPT/HCPCS: 73000; 73030

== ENCOUNTER 2024-04-10 01:03 | Outpatient (CLI) | payer MEDICAID, SELFPAY ==
--- NOTE | 2024-04-10 08:35 | DI.MRI_ITS ---
Exam(s) MR CHEST WO EXAM: MR CHEST WO CLINICAL HISTORY: PAIN,lt brachial plexitis,g54.0 TECHNIQUE: Multiplanar multisequence MRI of the cervical spine was performed without intravenous con trast. COMPARISON: CR XR CERVICAL SPINE COMP 4-5V from 04/01/2024 CR XR CLAVICLE LT from 04/07/2024 CR XR SHOULDER LT COMPLETE 2+V from 04/07/2024 FINDINGS: BONES: Vertebral body heights are maintained. Intervertebral disc spaces are normal. Alignment is nor mal. Bone marrow signal intensity is within normal limits. CERVICAL CORD: Craniovertebral junction is unremarkable. The cervical cord is normal size and signal intensity. SOFT TISSUES: The brachial plexus on the left side is unremarkable. No soft tissue mass is identified . No focal fluid collection is seen. The muscles show normal signal and size. There are findings of p rior left shoulder surgery. There is orthopedic hardware seen associated with the coracoid process. C6-7: There is a disc herniation eccentric to the left extending into the left neural foramen. It co mpresses the anterior aspect of the spinal cord at this level. There is also left neural foraminal s tenosis which results. The AP diameter of the spinal canal at this level is 9 mm. Limited visualiza tion of the remaining disc levels in the cervical spine are unremarkable. IMPRESSION: 1. C6-C7 disc herniation asymmetric to the left. There is central spinal canal and left neural forami nal stenosis which results. The AP diameter of the spinal canal is 9 mm. There is mild compression of the anterior aspect of the spinal cord but there is normal signal in the spinal cord. 2. Unremarkable appearance of the left brachial plexus. No evidence of a soft tissue mass or focal fl uid collection is seen. 3. Postsurgical changes seen in the left shoulder. DATA REPOSITORY:
--- NOTE | 2024-04-10 16:46 | DI.VRAD_ITS ---
Addendum created by Hallie Zapata MD on 04/10/2024 6:10:14 PM EST: THIS REPORT CONTAINS FINDINGS THAT MAY BE CRITICAL TO PATIENT CARE. LOLA HUDDLESTON confirmed via telephone conference at 04/10/2024 5:53 PM EST that the findings of this report are acknowledged and understood. Initial report created on 04/10/2024 4:46:17 PM EST: PROCEDURE INFORMATION: Exam: MR Chest Without Contrast; Brachial Plexus Exam date and time: 04/10/2024 3:13 PM Age: 28 years old Clinical indication: Pain, lt brachial plexitis TECHNIQUE: Imaging protocol: MR chest without contrast. Exam focused on the brachial plexus. COMPARISON: CT CHEST PE CTA 03/29/2024 4:09 AM FINDINGS: Limitations: The examination is slightly limited secondary to pulsation artifact throughout. Nerves: Unremarkable visualized nerves and brachial plexus. Soft tissues: Unremarkable Bones/joints: A intervertebral body disc extrusion is noted at the C6-C7 level, which is asymmetric to the left and causes mass effect on the ventral spinal cord. IMPRESSION: 1. Slightly limited evaluation of the brachial plexus, without any definite brachial plexus pathology noted. 2. Prominent intervertebral body disc extrusion the C6-C7 level, asymmetric to the left and causing mass effect on the spinal cord as described. Dictated and Authenticated by: Hallie Zapata MD. Ordering:KEVIN Sosa MD
== END 2024-04-10 01:23 ==
LOC: DI 01:03
PROVIDERS: PCP Student in an Organized Health Care Education/Training Program; Visit Provider Student in an Organized Health Care Education/Training Program
DX: G54.0 Brachial plexus disorders (principal)
CPT/HCPCS: 71550

== ENCOUNTER 2024-07-13 23:00 | Emergency (ER) | payer MEDICAID, SELFPAY ==
--- NOTE | 2024-07-13 23:02 | ED.GENADUL_ITS ---
Discharge Plan Disposition Patient Disposition: Home Condition: Stable Discharge Details Clinical Impression: Acute low back pain, Lumbar disc herniation Primary Care Provider: Carroll Kidd ED Provider: Clemente Morales Home Meds and New Rx's Prescriptions: New methylprednisolone [Medrol (Clif)] 4 mg tablets,dose pack See Rx Instructions .ROUTE .COMPLEX Qty: 1 0RF Rx Instructions: orally per package directions morphine 15 mg tablet 15 mg PO Q6H PRNQty: 16 0RF methocarbamol 500 mg tablet 500 - 1,000 mg PO TID PRNQty: 15 0RF Continued lidocaine 5 % adhesive patch,medicated 1 patch topical DAILY PRN Rx Instructions: leave on most painful area for up to 12 hrs ibuprofen 600 mg tablet 600 mg PO TID PRN Discharge Instructions Instructions: Herniated disc, Low Back Pain ED, Opioids for Short-Term Treatment of Pain ED Additional Instructions: You were seen for acute onset of low back pain after coughing. No evidence of neurologic compromise and no significant findings on labs or imaging other than small herniated disc at the L4-L5 region. This may be acute in nature given your description of the onset of pain. We will place you on Medrol Dosepak for swelling and inflammation. You may take acetaminophen or ibuprofen [id number] prescriptions for morphine and muscle relaxer methocarbamol have been sent to pharmacy. Should follow-up with primary care this week. You may need to follow-up with orthopedics depending on how things go over the next few days. You should return to ED if you develop any acute neurologic changes such as bladder or bowel dysfunction, numbness or weakness in the legs, other concerns. Referrals: [facility] [Provider Group] HPI General Mode of arrival: ambulatory . Date/Time Provider Initiated Documentation: 07/13/24 23:02 . Limitations to Documentation: no limitations . Information obtained by: patient, RN notes reviewed and old records reviewed . HPI Narrative: Patient presents to ED with sudden onset of low back/lumbar pain this afternoon after coughing. Patient reports that he was standing making dinner, coughed and felt immediate and severe pain in the lower back/lumbar area. Denies any abdominal pain or GI symptoms. Denies any urinary symptoms. Has not had any type of trauma, has not been shoveling snow, no recent illness. Had cervical disc surgery few months ago with no sequela. There is no radiation of pain down the legs. There is no numbness or weakness in the legs. Trying to sit or place weight on his heels makes the pain worse. Has never had anything similar to this in the past. He took leftover gabapentin and tramadol that he had from his cervical surgery with no relief of the pain. Related Data Home Medications ?Medication ?Instructions ?Recorded ?Confirmed ibuprofen 600 mg tablet 600 mg PO TID PRN 07/14/24 07/14/24 lidocaine 5 % topical patch 1 patch topical DAILY PRN 07/14/24 07/14/24 methocarbamol 500 mg tablet 500 - 1,000 mg (1 - 2 x 500 mg) PO 07/14/24 TID PRN #15 tabs methylprednisolone 4 mg tablets in See Rx Instructions PO .COMPLEX #1 07/14/24 a dose pack (Medrol (Clif)) dose pk morphine 15 mg immediate release 15 mg PO Q6H PRN #16 tabs 07/14/24 tablet Previous Rx's ?Medication ?Instructions ?Recorded methocarbamol 500 mg tablet 500 - 1,000 mg (1 - 2 x 500 mg) PO 07/14/24 TID PRN #15 tabs methylprednisolone 4 mg tablets in See Rx Instructions PO .COMPLEX #1 07/14/24 a dose pack (Medrol (Clif)) dose pk morphine 15 mg immediate release 15 mg PO Q6H PRN #16 tabs 07/14/24 tablet Allergies Allergy/AdvReac Type Severity Reaction Status Date / Time No Known Allergies Allergy Unverified 07/13/24 23:13 General PHAN: 4 Review of Systems Narrative: Per HPI Exam Narrative Exam Narrative: Const: WDWN male appears uncomfortable and standing beside his stretcher. VS per triage. HEENT: NC/AT. Normal facial exam. Neck: Supple. Trachea midline. Lungs: Normal respiratory effort. GI: Soft/ND/NT. Back: Exquisitely tender in the L4-L5 area as well as paraspinal in the mid lumbar area. No posterior rib tenderness, thoracic tenderness, pelvic brim or buttock tenderness. Neuro: A+O x 3. Normal speech, mentation. Cranial nerves II - XII grossly intact. No gross motor or sensory deficit. Ext: No C/C/E. Medical Decision Making Patient presents to ED with sudden and severe onset of low back/lumbar pain after coughing. Denies any abdominal pain or GI symptoms. Denies any trauma, exercise, shoveling snow, other exacerbating activity. Denies any neurologic changes. His age alone seems to minimize likelihood of ruptured AAA, compression fracture. Possible that he herniated a disc while coughing but has no evidence of neurologic change. He is incredibly uncomfortable. Will place IV and medicate, obtain labs, obtain CT of the abdomen pelvis with reconstruction of the lumbar spine. 01:10 - Patient's labs are unremarkable. CT of the abdomen/pelvis with reconstruction of LS spine shows no acute changes other than evidence of L4/L5 disc herniation. May be that this acutely herniated during his coughing fit spasm. Currently does not have any neurologic change or concern. Will place on Medrol Dosepak for inflammation and swelling. Will give prescription for muscle relaxer, methocarbamol and pain medication, immediate release morphine tablets. He has been on both previously. Review of the [facility] site confirms his report of previous use that was mostly postoperative. Follow-up with primary care and if no improvement potentially with an orthopedist who performed his cervical spine surgery. Return precautions provided. Medical Records Medical records reviewed: Yes I reviewed the patient's medical records. Medical records narrative: [facility] site Lab Data Lab results reviewed: Yes I reviewed the patient's lab results. Lab results narrative: see [facility] All Active Problems (Updated 07/14/24 @ 01:16 by Clemente Morales MD) Lumbar disc herniation (Acute) Acute low back pain (Acute) Medical History (Updated 07/14/24 @ 01:16 by Clemente Morales MD) No significant past medical history Surgical History (Updated 07/13/24 @ 23:37 by Clemente Morales MD) H/O cervical spine surgery Closed fracture of left clavicle Neer Type IIB, s/p ORIF 12/11/18 Failed orthopedic implant with removal of plate/screws History of knee surgery Social History Smoking/Tobacco Use Status: Current every day Tobacco Type: e-cigarettes Smoking risk assessment performed?: Yes Alcohol Intake: never Drug use: Occasionally Substance use type: marijuana Housing: apartment Do you feel safe at home: Yes Do you feel safe in your relationship?: Yes
[2024-07-13 23:11] VITALS: BP 148/106; PULSE 84; RESP 18; TEMP 37.1; O2SAT 99
[2024-07-13] MEDS: MORPHine 10 MG/ML VIAL 6 MG IVP (23:42)
[2024-07-13] MEDS: Ketorolac 30 MG/ML VIAL IVP (23:43)
[2024-07-13] MEDS: Orphenadrine 60 MG/2 ML VIAL IVP (23:43)
[2024-07-13 23:46] LABS: Abs Immature Grans 0.02 10^3/uL (0.0-0.06); Absolute Basophil Count 0.08 10^3/uL (0.0-0.2); Absolute Eosinophil Count 0.06 10^3/uL (0.0-0.7); Absolute Lymphocyte Count 3.27 10^3/uL (1.2-3.4); Absolute Neutrophil Count 3.62 10^3/uL (1.2-6.7); Basophils % 1.1 %; Eosinophils % 0.8 %; HCT 46.8 % (40.0-50.0); HGB 16.1 g/dL (13.5-17.5); Immature Grans % 0.3 %; Lymphocytes % 43.3 %; MCH 32.3 pg (27.0-33.0); MCHC 34.4 % (32.0-36.0); MCV 94 fL (80-95); MPV 9.2 fL (8.0-11.0); Monocytes % 6.6 %; Neutrophils % 47.9 %; Platelet Count 268 10^3/uL (130-400); RBC 4.99 10^6/uL (4.36-5.78); RDW 11.9 % (11.8-14.1); RDW-SD 41.4 fL; WBC 7.55 10^3/uL (4.4-10.8)
[2024-07-14] LABS: ALT 27 U/L (16-63); AST 11 U/L (15-37); Albumin 4.9 g/dL (3.4-5.0); Alkaline Phosphatase 94 U/L (46-116); Anion Gap 8.9 mmol/L (3-11); BUN 14 mg/dL (7-18); Bilirubin, Total 0.36 mg/dL (0.2-1.0); CO2 29.1 mmol/L (21.0-32.0); CREATININE 0.9 mg/dL (0.70-1.30); Calcium 9.8 mg/dL (8.5-10.1); Chloride 105 mmol/L (98-107); Estimated GFR 117.83 (mL/min/1.73m2); Glucose 92 mg/dL (74-106); Lipase 23 U/L (<78); Potassium 4.2 mmol/L (3.5-5.1); Sodium 143 mmol/L (136-145); Total Protein 8.6 g/dL (6.4-8.2)
[2024-07-14] MEDS: Omnipaque 350 MG/ML 100 ML BTL 75 ML IJ (00:28)
[2024-07-14] MEDS: Normal Saline - Diluent 50 ML VIAL IJ (00:29)
--- NOTE | 2024-07-14 00:30 | DI.CT_ITS ---
Exam(s) CT LUMBAR SPINE RECONS CT ABDOMEN PELVIS W EXAM: CT ABDOMEN PELVIS W lumbar spine recons CLINICAL HISTORY: sudden onset low back pain TECHNIQUE: Imaging Protocol: Axial computed tomography images with coronal and sagittal reformatted images were created and reviewed. CONTRAST MATERIAL: Intravenous: Omnipaque 350 Contrast volume:75 mL Oral: No COMPARISON: CT CT CHEST/ABD/PEL W from 10/25/2018 FINDINGS: ABDOMEN: Lung Bases: No acute abnormality. Liver: Normal density. No measurable mass. Portal, Superior Mesenteric, and Splenic Veins: Unremarkable. Gallbladder and Biliary Tract: No radiodense calculus or dilation. Pancreas: Normal density, no abnormal calcifications or inflammatory process. Spleen: Normal. Adrenals: No masses seen. Kidneys: Normal size, contour and axis. No radiodense stones or obstructive uropathy. No masses seen. Abdominal Aorta: Abdominal portion non-dilated. Bowel: No obstruction or bowel wall thickening. No evidence of appendicitis. Peritoneal Cavity: No ascites, collection or mesenteric inflammatory response. No free air. Lymph Nodes: Within normal limits. Bones: Within normal limits for the patient's age. 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 No evidence of an acute fracture or subluxation. No destructive changes are see n to suggest infection. Soft Tissues: Unremarkable. CT recons of the lumbar spine: No acute fracture or subluxation. No destructive changes are seen to suggest infection. Note is made of a mild disc bulge at L4-L5. No significant central spinal canal or neural foraminal stenosis is present. PELVIS: Bladder: Symmetric distention, no gross wall thickening. Reproductive Organs: Unremarkable as visualized. Lymph Nodes: Within normal limits. Bones: Within normal limits for the patient's age. IMPRESSION: 1. No acute abdominal or pelvic process. 2. Mild disc bulge at L4-L5 without significant central spinal canal or neural foraminal stenosis. 3. No acute fracture or subluxation in the lumbar spine. RADIATION DOSE DELIVERED: 198.53mGy.cm Total DLP DATA REPOSITORY: All CT scans at this facility are submitted to the National Radiology Data Registry (NRDR) Dose Index Registry (DIR) with the [employer] ([employer]). RADIATION OPTIMIZATION: All CT scans at this facility use at least one of these dose optimization te chniques: automated exposure control; mA and/or kV adjustment per patient size (includes targeted exa ms where dose is matched to clinical indication); or iterative reconstruction.
--- NOTE | 2024-07-14 00:45 | DI.VRAD_ITS ---
PROCEDURE INFORMATION: Exam: CT Abdomen And Pelvis With Contrast Exam date and time: 07/14/2024 12:07 AM Age: 28 years old Clinical indication: Sudden onset low back pain TECHNIQUE: Imaging protocol: Computed tomography of the abdomen and pelvis with contrast. Radiation optimization: All CT scans at this facility use at least one of these dose optimization techniques: automated exposure control; mA and/or kV adjustment per patient size (includes targeted exams where dose is matched to clinical indication); or iterative reconstruction. Contrast material: [id number]; Contrast volume: 75 ml; Contrast route: INTRAVENOUS (IV); COMPARISON: CT CHEST/ABD/PEL W 10/25/2018 9:02 PM FINDINGS: Liver: Normal. No mass. Gallbladder and biliary ducts: Normal. No calcified stones. No ductal dilation. Pancreas: Unremarkable. Spleen: Normal. Adrenal glands: Normal. No mass. Kidneys and ureters: Normal. No hydronephrosis. Stomach and bowel: Unremarkable. No bowel wall thickening or intestinal obstruction. Appendix: Appendix not visualized. No evidence of appendicitis. Intraperitoneal space: Unremarkable. No pneumoperitoneum. No abscess. Vasculature: Unremarkable. Lymph nodes: Unremarkable. Urinary bladder: Unremarkable as visualized. Reproductive: Unremarkable as visualized. Bones/joints: There is a mild L4-L5 disc bulge/herniation. Soft tissues: Unremarkable. IMPRESSION: There is a mild L4-L5 disc bulge/herniation. Dictated and Authenticated by: Teodoro Gonzales MD. Orderin Andrew Cornejo MD
--- NOTE | 2024-07-14 00:48 | DI.VRAD_ITS ---
PROCEDURE INFORMATION: Exam: CT Lumbar Spine Without Contrast Exam date and time: 07/14/2024 12:07 AM Age: 28 years old Clinical indication: Low back pain; Sudden onset severe lumbar pain TECHNIQUE: Imaging protocol: Computed tomography of the lumbar spine without contrast. Radiation optimization: All CT scans at this facility use at least one of these dose optimization techniques: automated exposure control; mA and/or kV adjustment per patient size (includes targeted exams where dose is matched to clinical indication); or iterative reconstruction. COMPARISON: CT ABDOMEN PELVIS W 07/14/2024 12:07 AM FINDINGS: Bones/joints: Relatively small L4-L5 central disc herniation. Impingement of the transiting bilateral L5 nerve roots not excluded. No fracture or suspicious osseous lesion. Soft tissues: See Bones/joints finding. IMPRESSION: Relatively small L4-L5 central disc herniation. Impingement of the transiting bilateral L5 nerve roots not excluded. Dictated and Authenticated by: Teodoro Gonzales MD. Orderin Andrew Cornejo MD
[2024-07-14] MEDS: MORPHine IR 15 MG TAB, 4 TABS/BTL PO (01:48)
[2024-07-14 01:51] VITALS: BP 140/90; PULSE 74; RESP 16; O2SAT 97
== END 2024-07-14 01:54 | disposition home or self-care (01) ==
PROVIDERS: Emergency Provider Emergency Medicine; PCP Student in an Organized Health Care Education/Training Program
DX: M54.50 Low back pain, unspecified; M51.369 Other intervertebral disc degeneration, lumbar region without mention of lumbar back pain or lower extremity pain
CPT/HCPCS: 80053; 83690; 96374; 96375; 99285; J2360; 74177; 85025; 99284; J1885; J2270; J3490

== ENCOUNTER 2024-08-14 01:09 | Outpatient (CLI) | payer MEDICAID, SELFPAY ==
--- NOTE | 2024-08-14 | DI.MRI_ITS ---
Exam(s) MR LUMBAR SPINE WO EXAM: MR LUMBAR SPINE WO CLINICAL HISTORY: SEVERE DEBILITATING LOW BACK PAIN SUBTLE LT SIDED RADICULAR PAIN, M54.42. TECHNIQUE: Multiplanar multisequence MRI of the Lumbar spine was performed. COMPARISON: CR XR SHOULDER LT COMPLETE 2+V from 04/07/[address] LUMBAR SPINE RECONS from 07/14/2024 FINDINGS: Bones: The last intervertebral disc space is designated the L5/S1 level for the numbering purpose of this ex amination. The vertebral body heights are well maintained. Alignment: Unremarkable. The marrow signal characteristics are unremarkable. Cord: The conus tip ends at the T12 level. It is of normal size and signal intensity. T12-L1: No focal disc herniation is present. No central spinal canal stenosis.No neural foraminal st enosis. L1-2: No focal disc herniation is present. No central spinal canal stenosis.No neural foraminal sten osis. L2-3: No focal disc herniation is present. No central spinal canal stenosis.No neural foraminal cecelia nosis. L3-4: No focal disc herniation is present. No central spinal canal stenosis.No neural foraminal cecelia nosis. L4-5: Some partial disc desiccation. The disc height is maintained. Broad-based mild disc protrus ion slightly eccentric toward the right. He contact the L5 nerve root. Slight narrowing of the AP d imension of the central canal. No neural foraminal stenosis. L5-S1: No focal disc herniation is present. No central spinal canal stenosis.No neural foraminal st enosis. The visualized SI joints and sacrum are unremarkable. Soft tissues: The paraspinal soft tissues are unremarkable. IMPRESSION: Small broad-based disc protrusions at L4-5 eccentric toward the right which may impinge on the right at L5 nerve root. DATA REPOSITORY:
== END 2024-08-14 01:29 ==
LOC: DI 01:10
PROVIDERS: PCP Student in an Organized Health Care Education/Training Program; Visit Provider Nurse Practitioner
DX: M54.42 Lumbago with sciatica, left side (principal); M51.26 Other intervertebral disc displacement, lumbar region
CPT/HCPCS: 72148